=== PATIENT | female | born 2000 | race Caucasian/White ===

== ENCOUNTER 2023-05-02 11:16 | Outpatient (RCR) | payer BC ==
[~2023-05-02] VITALS: Ht 167.6 cm; Wt 72.7 kg
[2023-05-02 11:10] VITALS: BP 136/89; PULSE 85; TEMP 97.8
== END 2023-05-03 | disposition home or self-care (01) ==
LOC: EUO
DX: Z23 Encounter for immunization (principal)

== ENCOUNTER 2023-05-13 15:00 | Outpatient (RCR) | payer BC ==
[2023-05-06 16:52] VITALS: BP 112/78; PULSE 80; TEMP 98.8
[~2023-05-13] VITALS: Ht 167.6 cm; Wt 72.7 kg
[2023-05-13 12:13] VITALS: BP 120/74; PULSE 79; TEMP 98.7
== END 2023-05-18 10:25 | disposition home or self-care (01) ==
LOC: EUO 15:00
DX: Z23 Encounter for immunization (principal); Z29.14 Encounter for prophylactic rabies immune globulin